=== PATIENT | female | born 1970 ===

== ENCOUNTER 2016-09-03 17:31 | Emergency (ER) | payer OTHER ==
[~2016-09-03] VITALS: Ht 165.1 cm; Wt 99.8 kg
[~2016-09-03 17:31] MED LIST: AMOXICILLIN500 MG PO; BUFFERIN LOW DO81 MG PO; CLINDAMYCIN HY300 MG PO; FLEXERIL10 MG PO; IBUPROFEN600 MG PO; K-DUR 20MEQ TA20 MEQ PO; MOBIC 15MG15 MG PO; PERCOCET 325 MG1 TA2 PO; TENORETIC 50 501 TAB PO
[2016-09-03 17:42] VITALS: BP 124/82
--- NOTE | 2016-09-03 17:56 | ED UPPER/LOWER EXTREMITY COMPL ---
History of Present Illness General Chief Complaint: Shoulder Injury Stated Complaint: SHOULDER INJURY Source: patient, family Exam Limitations: language barrier Vital Signs & Intake/Output Vital Signs & Intake/Output Vital Signs Date Time Temp Pulse Resp B/P Pulse O2 O2 Flow FiO2 Ox Delivery Rate 09/03 1742 98.4 81 16 124/82 98 Room Air Room Air Allergies Coded Allergies: NO KNOWN ALLERGIES (09/03/16) Reconcile Medications Aspirin (Children's Aspirin) 81 MG TAB 1 TAB PO DAILY HEART HEALTH (Reported) Atenolol/Chlorthalidone (Tenoretic 50 50 MG-25 MG) 1 TAB TAB 1 TAB PO DAILY BP (Reported) CYCLOBENZAPRINE HCL (Flexeril) 10 MG TAB 1 TAB PO Q8H PRN muscle relaxant Avoid operating motor vehicle or heavy machinery Meloxicam (Mobic 15MG) 15 MG TAB 1 TAB PO DAILY PRN PAIN/INFLAMMATION OXYCODONE HCL/ACETAMINOPHEN (Percocet 5-325 MG Tablet) 325 MG/5 MG TAB 1-2 TAB PO Q4-6 PRN PRN PAIN Oxycodone HCl/Acetaminophen (Percocet 5-325 MG Tablet) 5 MG-325 MG TABLET 1 TAB PO BID PRN pain Triage Note: PT TO TRIAGE WITH LEFT SHOULDER PAIN FOR 2 DAYS. PT DENIES TRAUMATIC INJURY. SHE THINKS IT MIGHT BE FROM REPETITIVE MOTIONS AT WORK. +CMS. PT WENT TO [facility] TODAY AND WAS TOLD HER LEFT SHOULDER WAS DISLOCATED AND NEEDED TO BE SEEN BY AN ORTHO. THEY CALLED THE ORTHO AND WERE TOLD THEY NEEDED TO GO TO AN ER. Triage Nurses Notes Reviewed? yes Onset: Gradual Duration: constant Timing: recent history Severity: severe Severity Numbers: 10 Pain/Injury Location: Left: Shoulder. Method of Injury: unknown HPI: Patient is a 45-year-old female with a past medical history of hypertension who presents to emergency room in which daughter is here translating which patient is Polish-speaking only who states that 4 days ago after work she complained of a gradual onset of left-sided shoulder localized pain and states that shoulder movements make worse. Patient denies any mechanism injury. Patient is right arm dominant. 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 Patient has been taking ibuprofen with no relief of symptoms. Patient was seen and evaluated at urgent care facility today received x-rays which the patient states that there is concerns of a shoulder dislocation. Patient was referred to the emergency room She denies any significant past medical history of left shoulder pain. Denies any elbow pain or arm paresthesia swelling Please note below that patient's x-ray findings were as dictated and obtained today showing no acute osseous injury PATIENT NAME: PRERNA MOORE DATE OF : 1970 ID/ CLINICIAN: Camden Ruiz FACILITY: [facility]) DATE OF EXAM: 09/03/2016 HISTORY: 840.9 Strain of unspecified muscle, fascia and tendon at shoulder and upper arm level, left arm, initial encounter I9C S46.912A Strain of unspecified muscle, fascia and tendon at shoulder and upper arm level, left arm, initial encounter I10 Strain of unspecified muscle, fascia and tendon at shoulder and upper arm level, left arm, initial encounter Pain and reduced ROM left shoulder. LEFT X-RAY SHOULDER- 2 VIEWS MINIMUM: Left shoulder: Findings: There is no fracture or dislocation. No abnormal soft tissue swelling is evident. Joint spaces are preserved. There are no abnormal calcifications. IMPRESSION: Unremarkable left shoulder. Electronically Signed By: Dr. Noble Guerrier M.D. 09/03/2016 16:23:15 EST Tech: [email or web address] (MICHAEL COOLEY) Past History Travel History Traveled to [place] day No Medical History Any Pertinent Medical History? see below for history Neurological: NONE EENT: NONE Cardiovascular: hypertension Respiratory: NONE Gastrointestinal: NONE Hepatic: NONE Renal: NONE Musculoskeletal: NONE Psychiatric: NONE Endocrine: NONE Blood Disorders: NONE Cancer(s): NONE COMMUNITY SUPPORT SPECIALIST/Reproductive: fibroid Surgical History Surgical History: non-contributory Psychosocial History What is your primary language Polish Tobacco Use: Never used ETOH Use: occasional use Illicit Drug Use: denies illicit drug use Family History Hx Contributory? No (MICHAEL COOLEY) Review of Systems Review of Systems Constitutional: Reports: no symptoms. EENTM: Reports: no symptoms. Respiratory: Reports: no symptoms. Cardiovascular: Reports: no symptoms. Gastrointestinal/Abdominal: Reports: no symptoms. Genitourinary: Reports: no symptoms. Musculoskeletal: Reports: see HPI, joint pain. Skin: Reports: no symptoms. Neurological/Psychological: Reports: no symptoms. Hematologic/Endocrine: Reports: no symptoms. Immunological: Reports: no symptoms. All Other Systems: Reviewed and Negative (MICHAEL COOLEY) Physical Exam Physical Exam General Appearance: mild distress Neurologic/Tendon: normal sensation, normal motor functions, normal tendon functions, responds to pain, no evidence tendon injury, no pulse deficit Skin: intact, normal color, warm/dry Comments: HEENT: Atraumatic, extraocular motion intact Neck: Supple, no lymphadenopathy Nontender normal inspection full active range of motion Back: Nontender Respiratory: No respiratory distress Extremities: Left shoulder normal inspection generalized glenohumeral point tenderness decreased active range of motion noted with 30 of abduction and flexion nontender clavicle Left upper extremity dermatomes intact radial pulse +2 full active range of motion with elbow and wrist Neuro: Alert and oriented x3 Psych: Mood affect normal, normal memory normal judgment. (MICHAEL COOLEY) Progress Differential Diagnosis: arterial insufficiency, compartment syndrome, contusion, dislocation, DVT, fracture, gout, septic arthritis, sprain, tendon injury Plan of Care: PATIENT HAD X-RAYS resulted today showing no osseous injury dictated in HPI. Patient was neurovascularly intact in left upper extremity. Patient was strongly advised to follow-up with discharge instructions and she will comply and had no questions (MICHAEL COOLEY) Departure Departure Disposition: HOME OR SELF CARE Condition: Stable Clinical Impression Primary Impression: Left shoulder strain Referrals: JED VALADEZ,DIO PEREZ MD,STACY (PCP/Family) Additional Instructions: As discussed begin icing the area directly 20 minutes every 2 hours. Begin and continue previously prescribed Naprosyn and cyclobenzaprine for your symptoms prescribed by the urgent care facility. Begin the prescription of Percocet for breakthrough pain. Continue to use a shoulder mobilizer that you already have in possession for support instability. If no better on Thursday follow-up and establish orthopedic Dr. ADKINS for further evaluation treatment. If symptoms worsen return to emergency room. Departure Forms: Customer Survey General Discharge Information Prescriptions: Current Visit Scripts Oxycodone HCl/Acetaminophen (Percocet 5-325 MG Tablet) 1 TAB PO BID PRN pain #10 TAB (MICHAEL COOLEY) PA/LINER REROLL TENDER Co-Sign Statement Statement: ED Attending supervision documentation- [] I saw and evaluated the patient. I have also reviewed all the pertinent lab results and diagnostic results. I agree with the findings and the plan of care as documented in the PA's/LINER REROLL TENDER's documentation. [X] I have reviewed the ED Record and agree with the PA's/LINER REROLL TENDER's documentation. [] Additions or exceptions (if any) to the PAs/LINER REROLL TENDER's note and plan are summarized below: [] (GREGORY VALADEZ,CANDY Pitts)
[2016-09-03] MEDS ORDERED: PERCOCET 5-3251 EACH PO (17:59)
== END 2016-09-03 18:11 ==
LOC: ERH 17:31
DX: S46.912A Strain of unspecified muscle, fascia and tendon at shoulder and upper arm level, left arm, initial encounter (principal); X58.XXXA Exposure to other specified factors, initial encounter

== ENCOUNTER 2017-11-27 14:14 | Emergency (ER) | payer OTHER ==
[~2017-11-27] VITALS: Ht 165.1 cm; Wt 87.5 kg
[~2017-11-27 14:14] MED LIST changes: -BUFFERIN LOW DO81 MG PO; +CHILDREN'S ASPI81 M1 PO; +CYCLOBENZAPRINE10 M1 PO; +PERCOCET 5-3251 EACH PO; -TENORETIC 50 501 TAB PO; +TENORETIC 50 T1 EACH PO
--- NOTE | 2017-11-27 14:56 | ED PSYCHIATRIC COMPLAINT ---
History of Present Illness General Chief Complaint: Psychiatric Related Complaint Stated Complaint: DEPRESSION, +SI Source: patient Exam Limitations: no limitations Allergies Coded Allergies: NO KNOWN ALLERGIES (09/03/16) Reconcile Medications Aspirin (Children's Aspirin) 81 MG TAB.CHEW 1 TAB PO DAILY HEART HEALTH ( Reported) Atenolol/Chlorthalidone (Tenoretic 50 Tablet) 50 MG-25 MG TABLET 1 TAB PO DAILY HEART (Reported) Ibuprofen 800 MG TABLET 1 TAB PO TID PRN PAIN Potassium Chloride (K-Tab ER) 10 MEQ TABLET.ER 1 TAB PO DAILY HYPO K Triage Note: 47F ENDORSES SI WITHOUT SPECIFIC PLAN SINCE MOTHER PASSING AWAY LAST MONTH. APPEARS DYSPHORIC AND DEPRESSED WITH VERY LIMITED RANGE OF AFFECT. DENIES PREVIOUS ATTEMPTS OR ACCESS TO FIREARMS. TURKISH SPEAKING ONLY, DAUGHTER PRESENT TO TRANSLATE. DENIES ETOH/DRUG USE. TEARFUL IN TRIAGE Triage Nurses Notes Reviewed? yes Onset: Gradual Duration: week(s): (month), changing over time, continues in ED, waxing and waning Timing: single episode today Severity: moderate, severe Associated Symptoms: anxiety, suicidal ideation LMP (ages 10-50): unknown : No Patient currently breastfeeds: No HPI: 47-year-old female with history of hypertension presents for evaluation of depression. Patient reports that her mother about a month ago and since then she has had worsening depression. She currently denies suicidal thoughts to me. No homicidal thoughts. She's never felt like this in the past she does not take medicine for depression she never been hospitalized for psychiatric issue. She does not drink smoke or use any drugs no hallucinations. She does report some low back pain intermittently. She also reports that 3 days ago she had an episode of chest pain and she was feeling very depressed. The pain was located in the center of her chest did not radiate. She has had it before over the last month related to depression and anxiety. There is no shortness of breath the pain lasted less than a minute and resolved she's had nothing since no chest pain on exertion. (Dain Jacob) General Source: patient Vital Signs & Intake/Output Vital Signs & Intake/Output Vital Signs Date Time Temp Pulse Resp B/P B/P Pulse O2 O2 Flow FiO2 Mean Ox Delivery Rate 11/27 1822 97.5 82 18 134/84 97 Room Air Room Air 11/27 1547 97.9 100 18 129/85 100 Room Air 11/27 1419 97.4 54 18 143/90 99 Room Air ED Intake and Output 11/28 0000 11/27 1200 Intake Total Output Total Balance Patient 193 lb Weight Weight Reported by Patient Measurement Method (Bharath Lemus DO) Past History Travel History Traveled to [place] past 21 day No Medical History Any Pertinent Medical History? 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 No (Dain Jacob) Review of Systems Review of Systems Constitutional: Reports: no symptoms. EENTM: Reports: no symptoms. Respiratory: Reports: no symptoms. Cardiovascular: Reports: see HPI, chest pain. GI: Reports: no symptoms. Genitourinary: Reports: no symptoms. Musculoskeletal: Reports: see HPI, back pain. Skin: Reports: no symptoms. Neurological/Psychological: Reports: no symptoms. Hematologic/Endocrine: Reports: see HPI. Immunologic/Allergic: Reports: no symptoms. All Other Systems: Reviewed and Negative (Dain Jacob) Physical Exam Physical Exam General Appearance: well developed/nourished, no apparent distress, alert, awake Head: atraumatic, normal appearance Eyes: Bilateral: normal appearance, PERRL, EOMI. Ears, Nose, Throat: normal pharynx, normal ENT inspection, hearing grossly normal Neck: normal inspection, supple, full range of motion Respiratory: normal breath sounds, chest non-tender, no respiratory distress, lungs clear Cardiovascular: regular rate/rhythm, normal peripheral pulses Gastrointestinal: soft, non-tender Extremities: normal range of motion Neurological/Psychiatric: no motor/sensory deficits, awake, alert, normal mood/ affect, depressed affect Appearance/Memory/Insight: appropriate appearance, appropriate insight Behavoir/Eye Contact/Speech: cooperative, normal speech, good eye contact Thoughts/Hallucinations: normal thought pattern, no apparent hallucination Skin: intact, normal color, warm/dry SAD PERSONS Done? patient not suicidal (Dain Jacob) Progress Differential Diagnosis: dementia, drug intoxication, drug overdose, drug withdrawal, electrolyte abnormality Initial ED EKG: normal sinus rhythm, LVH, AGE INDETERMINANT INFERIOR INFARCT (Black SUSHANT,Dain) Plan of Care: Orders Procedure Date/time Status Regular Diet 11/27 D Active Add-on Test (ER Only) 11/27 151 Active EKG 11/27 151 Active TROPONIN LEVEL 11/27 151 Complete Continuous Observation Monitor 11/27 142 Active URINE 11/27 142 Complete URINE DRUG SCREEN FOR ER ONLY 11/27 142 Complete URINALYSIS 11/27 1426 Complete ETHANOL 11/27 1426 Complete COMPREHENSIVE METABOLIC PANEL 11/27 1426 Complete CBC WITHOUT DIFFERENTIAL 11/27 1426 Complete ED CRISIS PSYCH CONSULT 11/27 1426 Active Laboratory Tests 11/27/17 1525: Urine Opiates Screen < 100, Methadone Screen < 40, Barbiturate Screen < 60, Ur Phencyclidine Scrn < 6.00, Amphetamines Screen < 100, U Benzodiazepines Scrn < 85, Urine Cocaine Screen < 50, Urine Cannabis Screen < 5.00, Urinalysis LIGHT H , Urine Color YEL, Urine Clarity HAZY H, Urine pH 6.0, Ur Specific [place] 1.025, Urine Protein NEG, Urine Ketones NEG, Urine Nitrite NEG, Urine Bilirubin NEG, Urine Urobilinogen 0.2, Ur Leukocyte Esterase NEG, Ur Microscopic SEDIMENT EXAMINED, Urine WBC 1-3 H, Ur Epithelial Cells FEW, Urine Hemoglobin TRACE- INTACT, Urine Glucose NEG, Urine Test NEGATIVE 11/27/17 1510: Anion Gap 15, Estimated GFR > 60, BUN/Creatinine Ratio 12.9, Glucose 94, Calcium 9.7, Total Bilirubin 0.4, AST 29, ALT 40, Alkaline Phosphatase 64, Troponin I < 0.01, Total Protein 7.5, Albumin 4.5, Globulin 3.0, Albumin/Globulin Ratio 1.5, CBC w Diff NO MAN DIFF REQ, RBC 4.66, MCV 85.9, MCH 28.5, MCHC 33.2, RDW 13.5, MPV 9.2, Gran % 29.7 L, Lymphocytes % 55.8 H, Monocytes % 11.2 H, Eosinophils % 2.2, Basophils % 1.1, Absolute Granulocytes 1.5, Absolute Lymphocytes 2.8, Absolute Monocytes 0.6, Absolute Eosinophils 0.1, Absolute Basophils 0.1, Serum Alcohol < 10.0 Patient seen and evaluated. She is here reporting episodes of depression since the of her mother one month ago. She currently denies suicidal ideation to me. No homicidal ideation. She does report some intermittent back pain and she had episode of chest pain a few days ago. Currently she has been chest pain -free for the past several days. No shortness of breath no other associated symptoms. Labs EKG ordered. Patient will see crisis. Work shows a potassium of 3.2. There's no EKG changes. Patient will be given a oral supplement. Main blood work is within normal limits troponin negative drug screen negative waiting on crisis recommendations. She was seen by crisis and cleared for discharge. She'll be following up with outpatient psychiatry. Patient was given a prescription for potassium and advised to recheck potassium in a few days. Tylenol and ibuprofen for back pain. Discussed return precautions patient agrees the plan (Dain Jacob) (Bharath Lemus DO) Departure Departure Disposition: HOME OR SELF CARE Condition: Stable Referrals: Sam Cordon MD (PCP/Family) Additional Instructions: Follow up with outpatient psychiatry as directed. Monitor symptoms return with any concerns Departure Forms: Customer Survey General Discharge Information Prescriptions: Current Visit Scripts Ibuprofen 1 TAB PO TID PRN PAIN #30 TAB Potassium Chloride (K-Tab ER) 1 TAB PO DAILY #10 TAB (Dain Jacob) Departure Clinical Impression Primary Impression: Depression Comments 11/27/17 The patient was seen and evaluated and cleared by crisis. PA/RETAIL PROPERTY MANAGER Co-Sign Statement Statement: ED Attending supervision documentation- [] I saw and evaluated the patient. I have also reviewed all the pertinent lab results and diagnostic results. I agree with the findings and the plan of care as documented in the PA's/RETAIL PROPERTY MANAGER's documentation. [X] I have reviewed the ED Record and agree with the PA's/RETAIL PROPERTY MANAGER's documentation. [] Additions or exceptions (if any) to the PAs/RETAIL PROPERTY MANAGER's note and plan are summarized below: [] (Bharath Lemus DO) ED Attending Observation Initial Observation Note: I have seen and personally examined PRERNA MOORE on 11/28/17 at 1137. I agree with the current emergency department documentation. The disposition (admission or discharge) is uncertain at this time, she needs a period of observation for the following reason(s): The ED Nurse caring for this patient has been personally informed as to what the patient is being observed for. (Krish CANCHOLA,Dain)
[2017-11-27 15:35] LABS: ABSOLUTE BASOPHIL COUNT 0.1 /CUMM (0.0-0.2); ABSOLUTE EOSINOPHIL COUNT 0.1 /CUMM (0.0-0.7); ABSOLUTE GRANULOCYTE CT 1.5 /CUMM (1.4-6.5); ABSOLUTE LYMPH COUNT 2.8 /CUMM (1.2-3.4); ABSOLUTE MONOCYTE COUNT 0.6 /CUMM (0.10-0.60); BASOPHIL % 1.1 % (0.0-2.0); EOSINOPHIL % 2.2 % (0-5); GRANULOCYTE % 29.7 % (42.2-75.2); MEAN CORPUSCULAR HGB 28.5 PG (27.0-31.0); MEAN CORPUSCULAR HGB CONC 33.2 G/DL (33.0-37.0); MEAN CORPUSCULAR VOLUME 85.9 FL (81.0-99.0); MEAN PLATELET VOLUME 9.2 FL (7.4-10.4); PLATELET COUNT 214 /CUMM (130-400); RBC DISTRIBUTION WIDTH 13.5 % (11.5-14.5); RED BLOOD CELL CT 4.66 /CUMM (4.20-5.40); WHITE BLOOD CELL COUNT 4.9 /CUMM (4.8-10.8)
[2017-11-27] MEDS ORDERED: IBUPROFEN800 M1 PO (18:19)
[2017-11-27] MEDS ORDERED: K-TAB ER10 MEQ PO (18:20)
[2017-11-27 18:22] VITALS: BP 134/84
--- NOTE | 2017-11-27 19:11 | ED PSYCH CRISIS CONSULTATION ---
Crisis Consult Basic Assessment Date of Consult: 11/27/17 Responsible Person/Accompanied By: daughter Insurance Authorization: Insurance #1: Insurance name: STANLEY Phone number: Policy number: [id number] Group [id number] Authorization number: ED Provider: Patient's ED Provider: Dain Jacob Primary Care Physician: Patient's PCP: Sam Cordon MD PCP's Current Psychiatrist: n/a Chief Complaint: Psychiatric Related Complaint Patient's Quote: "I am sad over my mother." Present Illness: The pt is a 47yo female brought in by her 26yo daughter at the recommendation of her primary care physician Dr. Cordon. The pt reports she was at a scheduled appointment with Dr. Cordon earlier today and answered a written screen positively for preferring to be . Dr. Cordon then recommended an evaluation in the ED. The pt reports she has been sad since the of her mother on 10/23/17. The pt reports she was very close to her mother and her passing was unexpected. The pt denies SI, HI, AH and VH. The pt denies any hx of SI. The pt denies any previous inpt or outpt psychiatric treatment. The pt denies any problems with sleep, appetite or concentration. The pt denies any previous episodes of mood disorder. The pt's toxicology screen is negative. 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 The pt reports she enjoys her job and has support from her father, brothers and children. The pt lives with her 26yo daughter, 21yo son and 17yo daughter. The pt was in 2004. The pt presents as future oriented and requested discharge from the ED. The pt reports she has many reasons to live and enjoys life. The pt reports she is scared of and scared of pain. The C-SSRS was completed and placed in the pts chart. Met in person with the pts 26yo daughter Kamilla who stayed with the pt while she was in the ED. Kamilla stated the pt does not have any hx of SI or other mood related issues. Kamilla stated she has no safety concerns regarding her mother and never in the past had any safety concerns. Kamilla stated she sees the pt as grieving the loss of her mother. Spoke by phone with Dr. Cordon ([phone]) who stated the pt answered a question on a screen that she would be better off . Dr. Cordon stated he is not aware of any past mood related issues for the pt. Dr. Cordon stated he sent the pt to the ED to be assessed for SI. Discussed the pts presentation and hx, Dr. Cordon stated he is on board with discharge and referrals for outpt therapy. Pts presentation and hx discussed by phone with Dr. Bass, plan is for discharge with a recommendation for outpatient therapy. Pt initially stated she does not believe she needs therapy but agreed to pursue therapy. Handed the pt a list of resources including 211. Pt stated she will return ot the ED or call 911 if needed for safety. The pts daughter stated the pt has much support at home and work. Daughter stated she will return the pt to the ED if she has any concerns about the pts safety. Patient's Address: [address] [place] [address] Other DTR Who Do You Live With? Family Family/Informants Interviewed: Daughter, PCP Dr. Cordon Allergies - Coded Allergies: NO KNOWN ALLERGIES (09/03/16) Current Medications - Scheduled Medications Aspirin (Children's Aspirin) 81 MG TAB.CHEW 1 TAB PO DAILY HEART HEALTH ( Reported) Entered as Reported by Alberto Hastings on 05/22/15 0907 Atenolol/Chlorthalidone (Tenoretic 50 Tablet) 50 MG-25 MG TABLET 1 TAB PO DAILY HEART (Reported) Entered as Reported by Lana Long on 10/25/14 2115 Potassium Chloride (K-Tab ER) 10 MEQ TABLET.ER 1 TAB PO DAILY HYPO K #10 TAB Prescribed by Dain Jacob on 11/27/17 Scheduled PRN Medications Ibuprofen 800 MG TABLET 1 TAB PO TID PRN PAIN #30 TAB Prescribed by Dain Jacob on 11/27/17 Laboratory Results: Laboratory Tests 11/27/17 1525: Urine Opiates Screen < 100, Methadone Screen < 40, Barbiturate Screen < 60, Ur Phencyclidine Scrn < 6.00, Amphetamines Screen < 100, U Benzodiazepines Scrn < 85, Urine Cocaine Screen < 50, Urine Cannabis Screen < 5.00, Urinalysis LIGHT H , Urine Color YEL, Urine Clarity HAZY H, Urine pH 6.0, Ur Specific [place] 1.025, Urine Protein NEG, Urine Ketones NEG, Urine Nitrite NEG, Urine Bilirubin NEG, Urine Urobilinogen 0.2, Ur Leukocyte Esterase NEG, Ur Microscopic SEDIMENT EXAMINED, Urine WBC 1-3 H, Ur Epithelial Cells FEW, Urine Hemoglobin TRACE- INTACT, Urine Glucose NEG, Urine Test NEGATIVE 11/27/17 1510: Anion Gap 15, Estimated GFR > 60, BUN/Creatinine Ratio 12.9, Glucose 94, Calcium 9.7, Total Bilirubin 0.4, AST 29, ALT 40, Alkaline Phosphatase 64, Troponin I < 0.01, Total Protein 7.5, Albumin 4.5, Globulin 3.0, Albumin/Globulin Ratio 1.5, CBC w Diff NO MAN DIFF REQ, RBC 4.66, MCV 85.9, MCH 28.5, MCHC 33.2, RDW 13.5, MPV 9.2, Gran % 29.7 L, Lymphocytes % 55.8 H, Monocytes % 11.2 H, Eosinophils % 2.2, Basophils % 1.1, Absolute Granulocytes 1.5, Absolute Lymphocytes 2.8, Absolute Monocytes 0.6, Absolute Eosinophils 0.1, Absolute Basophils 0.1, Serum Alcohol < 10.0 Past History Past Medical History Neurological: NONE EENT: NONE Cardiovascular: hypertension Respiratory: NONE Gastrointestinal: NONE Hepatic: NONE Renal: NONE Musculoskeletal: NONE Psychiatric: NONE Endocrine: NONE Blood Disorders: NONE Cancer(s): NONE 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 Past Surgical History Surgical History: non-contributory Psychosocial History Strengths/Capabilities: supportive family, stable housing, 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 Physical Limitations (Interventions): n/a Psychiatric Treatment History Psych Treatment Psychiatric Treatment No Diagnosis by History: n/a Substance Use/Abuse History Drug Use/Abuse Substances Used/Abused No Substance Abuse Treatment Substance Abuse Treatment Past Substance Abuse [place] No Current Mental Status Mental Status Orientation: Person, Place, Situation Affect: WNL Speech: WNL Neuro-vegetative: WNL Appearance Appearance- Dress/Hygiene: appropriate Behaviors Thought Process: WNL Thought Content: WNL Memory: WNL Insight: WNL SI/HI Risk Assessment Past Suicidal Ideation/Attempts No Current Suicidal Ideation/Att No Past Homicidal Ideation/Att: No Current Homicidal Ideation/Attempts No Degree of Intent: None Danger To: n/a Gravely Disabled: n/a Risk Factors: recent loss of mother Lethality Ratin (mild) PTSD Checklist PTSD Done? patient declined ED Management Sitter: Yes Restraints: No DSM5/PS Stressors/Medical Prob Diagnosis' (DSM 5, Stressors, Medical): F43.21 Adjustment Disorder with Depressed Mood Current GAF: 57 Departure Disposition Psych Medical Clearance Date: 11/27/17 Medically Cleared at: 1714 Time Started: 1714 Time Ended: 1809 Psychiatrist Consulted: Shelia Date Disposition Established: 11/27/17 Time Disposition Established: 1814 Plan for Disposition - Modality: Outpatient Facility: Patient to Arrange Rationale for Disposition: Pt is not in need of inpatient treatment. Referrals Sam Cordon MD (PCP/Family)
== END 2017-11-27 18:23 ==
LOC: ERH 14:14
PROVIDERS: Physician Assistant Medical
DX: F32.9 Major depressive disorder, single episode, unspecified (principal)
CPT/HCPCS: 80307; 81001; 81025; 93005; 93010; G0463; G0480